=== PATIENT | male | born 1950 | race Hispanic/Latino ===

== ENCOUNTER 2021-09-24 17:11 | Emergency (ER) | payer SELFPAY ==
[2021-09-24] MEDS ORDERED: SODIUM CHLORIDE 0.9% IRR 500 ML BOTTLE IR ONE (18:22)
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
[2021-09-24 21:48] VITALS: BP 147/83
[2021-09-24] MEDS ORDERED: TETANUS,DIPH,PERTUSS(ACELL) VACCINE 0.5 ML SYRINGE IM ONE (23:15)
[2021-09-24] MEDS ORDERED: LIDOCAINE (1%) 10 MG/1 ML VIAL 20 ML MDV INFILTRATI ONE (23:35)
[2021-09-24] MEDS ORDERED: IBUPROFEN 600 MG TAB PO ONE (23:36)
== END 2021-09-25 04:57 | disposition left against medical advice (07) ==
LOC: ED 17:11
DX: S01.511A Laceration without foreign body of lip, initial encounter (principal); Z53.21 Procedure and treatment not carried out due to patient leaving prior to being seen by health care provider; X58.XXXA Exposure to other specified factors, initial encounter; Y93.89 Activity, other specified; Y92.89 Other specified places as the place of occurrence of the external cause; Y99.8 Other external cause status